=== PATIENT | female | born 1965 | race Two or more races ===

== ENCOUNTER 2020-07-14 10:42 | Outpatient (REF) | payer OTHER, SELFPAY | END 2020-07-14 10:43 | disposition home or self-care (01) | LOC: HO.LAB 10:42 | PROVIDERS: Visit Provider Internal Medicine | DX: Z20.828 Contact with and (suspected) exposure to other viral communicable diseases (principal) | CPT/HCPCS: C9803; U0003 ==

== ENCOUNTER 2020-09-16 09:50 | Outpatient (REF) | payer OTHER, SELFPAY | END 2020-09-16 09:51 | disposition home or self-care (01) | LOC: HO.LAB 09:50 | PROVIDERS: Visit Provider Internal Medicine | DX: Z20.822 Contact with and (suspected) exposure to COVID-19 (principal) | CPT/HCPCS: 36415; C9803; U0003 ==

== ENCOUNTER 2020-10-31 13:46 | Outpatient (REF) | payer OTHER, SELFPAY | END 2020-10-31 13:47 | disposition home or self-care (01) | LOC: HO.LNP 13:46 | PROVIDERS: PCP Internal Medicine; Visit Provider Obstetrics & Gynecology | DX: Z01.419 Encounter for gynecological examination (general) (routine) without abnormal findings (principal); R10.2 Pelvic and perineal pain; R31.29 Other microscopic hematuria; Z85.42 Personal history of malignant neoplasm of other parts of uterus; Z90.710 Acquired absence of both cervix and uterus; Z90.722 Acquired absence of ovaries, bilateral | CPT/HCPCS: 87086 ==

== ENCOUNTER 2020-11-11 14:49 | Outpatient (REF) | payer OTHER, SELFPAY ==
[2020-11-11 15:32] LABS: Blood Urea Nitrogen 21 mg/dL (9-16); Estimated Glomerular Filt Rate > 60
== END 2020-11-11 14:50 | disposition home or self-care (01) ==
LOC: HO.LAB 14:49
PROVIDERS: PCP Internal Medicine; Visit Provider Obstetrics & Gynecology
DX: R31.29 Other microscopic hematuria (principal)
CPT/HCPCS: 36415; 82565; 84520

== ENCOUNTER 2020-11-21 07:18 | Outpatient (REF) | payer OTHER, SELFPAY | END 2020-11-21 07:19 | disposition home or self-care (01) | LOC: HO.CT 07:18 | PROVIDERS: Visit Provider Obstetrics & Gynecology | DX: Z13.89 Encounter for screening for other disorder (principal) ==

== ENCOUNTER 2020-11-25 06:13 | Outpatient (REF) | payer OTHER, SELFPAY ==
--- NOTE | ~2020-11-25 | CT_ITS ---
EXAMINATION: CT ABDOMEN AND PELVIS WITH CONTRAST CLINICAL INFORMATION: Pelvic and perineal pain COMPARISON: None TECHNIQUE: Multidetector volumetric images were obtained from the superior aspect of the liver through the pubic symphysis following administration 85 mL of Omnipaque 350 intravenous contrast. Sagittal and coronal reformatted images were obtained on the technologist's workstation. Oral contrast: No This CT examination was performed using dose optimization techniques as appropriate, variously including the following: *Automated exposure control *Adjustment of mA and/or kV according to patient size (this includes techniques or standardized protocols for targeted exams where dose is matched to indication/reason for exam; i.e. extremities or head) *Use of iterative reconstruction technique DLP: 380 mGy-cm FINDINGS: LUNG BASES: The visualized lung bases are unremarkable. LIVER, GALLBLADDER, AND BILIARY TREE: The liver is normal in size, shape, and attenuation. No focal hepatic lesion or biliary ductal dilatation is present. The gallbladder is unremarkable with no evidence of radiopaque gallstones, gallbladder wall thickening, or obvious pericholecystic inflammatory changes. PANCREAS: There is an 8 mm cyst body of the pancreas on axial image 28/3. Otherwise the rest of the pancreas is homogeneous in density and normal size. SPLEEN: Unremarkable. ADRENAL GLANDS: Unremarkable. KIDNEYS AND URETERS: The kidneys are normal in size, shape, and attenuation. No hydronephrosis, hydroureter, or calculi seen. No perinephric stranding. BLADDER: Unremarkable. GASTROINTESTINAL TRACT: Scattered oral contrast seen throughout the colon and small bowel loops without distention. There is scattered stool in the colon and moderate impacted stool in the rectum consistent with constipation. Appendix is normal caliber. Cecum and the appendix lies within the right lower pelvis. No free fluid or free air seen. ABDOMINAL WALL: No significant hernia is appreciated. LYMPH NODES: Normal. VASCULAR: Unremarkable. PELVIC VISCERA: The uterus is not visualized likely surgically absent or atrophic. There is no free fluid or free air. OSSEOUS STRUCTURES: No lytic or sclerotic process seen. CT/CT abdomen pelvis w con IMPRESSION: 1. There is an 8 mm cyst body of the pancreas. Rest of the pancreas is unremarkable. Recommend follow-up pancreatic cyst in 6 months to one year. 2. Moderate constipation.
[2020-11-25] MEDS: Barium Sulfate Oral (Vanilla) 450 ML ORAL.SUSP 900 ML PO (09:05)
== END 2020-11-25 06:14 | disposition home or self-care (01) ==
LOC: HO.CT 06:13
PROVIDERS: Visit Provider Obstetrics & Gynecology
DX: R10.2 Pelvic and perineal pain (principal)
CPT/HCPCS: 74177; Q9967

== ENCOUNTER → 2020-11-30 08:13 | Outpatient (BNVA) | payer OTHER, SELFPAY | PROVIDERS: PCP Internal Medicine; Visit Provider Obstetrics & Gynecology | DX: R31.29 Other microscopic hematuria (principal); R10.2 Pelvic and perineal pain; K86.2 Cyst of pancreas | CPT/HCPCS: 81003 ==

== ENCOUNTER 2021-01-20 11:10 | Outpatient (REF) | payer OTHER, SELFPAY | END 2021-01-20 11:11 | disposition home or self-care (01) | LOC: HO.LAB 11:10 | PROVIDERS: Visit Provider Internal Medicine | DX: Z20.822 Contact with and (suspected) exposure to COVID-19 (principal) | CPT/HCPCS: C9803; U0003; U0005 ==

== ENCOUNTER 2021-04-14 15:35 | Outpatient (REF) | payer OTHER, SELFPAY ==
--- NOTE | ~2021-04-14 | MM_ITS ---
EXAMINATION: MM SCREENING DIGITAL BREAST TOMOSYNTHESIS, BILATERAL CLINICAL INFORMATION: Screening. Asymptomatic. The lifetime risk of breast cancer based on the Tyrer-Cuzick Model is 7%. COMPARISON: Mammography: 04/08/2020, 01/14/2019, 12/23/2017 TECHNIQUE: Digital breast tomosynthesis is performed in both the craniocaudal and mediolateral oblique views along with computer-aided detection (CAD). Synthesized 2D images are generated from the tomosynthesis. Additional left MLO view is provided. FINDINGS: There are scattered areas of fibroglandular density (ACR BI-RADS breast composition Category b). There are no significant masses, abnormal calcifications, or other abnormalities. The axilla are unremarkable. There is chronic bilateral nipple retraction similar to prior studies. MM/MM tomosynthesis screening BI IMPRESSION: No mammographic evidence of malignancy. ASSESSMENT: BI-RADS 2: Benign RECOMMENDATION: Routine annual mammography screening. This patient's information was entered into a reminder system with a target due date for their next mammogram.
== END 2021-04-14 15:36 | disposition home or self-care (01) ==
LOC: HO.MAMMO 15:35
PROVIDERS: PCP Internal Medicine; Visit Provider Internal Medicine
DX: Z12.31 Encounter for screening mammogram for malignant neoplasm of breast (principal)
CPT/HCPCS: 77063; 77067

== ENCOUNTER 2021-09-12 10:01 | Outpatient (REF) | payer OTHER, SELFPAY ==
[2021-09-12 13:39] LABS: Binax Internal Control QC Valid; Binax Now Covid-19 Ag Negative (Negative)
== END 2021-09-12 10:02 | disposition home or self-care (01) ==
LOC: HO.LAB 10:01
PROVIDERS: Visit Provider Internal Medicine
DX: Z20.822 Contact with and (suspected) exposure to COVID-19 (principal)
CPT/HCPCS: C9803

== ENCOUNTER → 2021-11-23 09:41 | Outpatient (BNVA) | payer OTHER, SELFPAY | PROVIDERS: Visit Provider Obstetrics & Gynecology | DX: R10.2 Pelvic and perineal pain (principal) ==

== ENCOUNTER 2022-06-13 19:17 | Emergency (ER) | payer OTHER, SELFPAY ==
[2022-06-13 20:55] VITALS: BP 122/74; PULSE 75; RESP 16; TEMP 36.6; O2SAT 98; BMI 27.4
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
== END 2022-06-13 22:16 | disposition home or self-care (01) ==
PROVIDERS: Emergency Provider Emergency Medicine
DX: M54.2 Cervicalgia (principal); M54.50 Low back pain, unspecified; R51.9 Headache, unspecified
CPT/HCPCS: 99282; 99283

== ENCOUNTER 2022-06-18 15:26 | Outpatient (REF) | payer OTHER, SELFPAY ==
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
== END 2022-06-18 15:27 | disposition home or self-care (01) ==
LOC: HO.XRAY 15:26
PROVIDERS: Visit Provider Chiropractor
DX: S33.5XXA Sprain of ligaments of lumbar spine, initial encounter (principal); S13.4XXA Sprain of ligaments of cervical spine, initial encounter; S63.91XA Sprain of unspecified part of right wrist and hand, initial encounter
CPT/HCPCS: 72040; 72100; 73130

== ENCOUNTER 2022-07-20 06:26 | Emergency (ER) | payer OTHER, SELFPAY ==
[2022-07-20 06:47] VITALS: BP 163/69; PULSE 67; RESP 153; TEMP 36.4; O2SAT 92; BMI 29.2
--- NOTE | 2022-07-20 08:01 | ED.EXTPRO ---
HPI - Extremity Problem General Chief complaint: Extremity Problem Stated complaint: Finger pain/No inj Time Seen by Provider: 07/20/22 07:45 Source: patient Mode of arrival: EMS Limitations: no limitations History of Present Illness HPI Narrative: 56-year-old female who presents emergency department for evaluation of redness, swelling and pain over the right ring finger. Patient states she noticed redness and pain over the tip of her right index finger approximately 1 week prior. She has been applying antibiotic with no improvement. 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 She denied systemic symptoms such as fever, chills and fatigue. She has been her usual state of health. She was concerned that the pain in her finger has increased. She describes the pain is a constant, burning sensation which is 7/10. Complaint: extremity pain (Ring finger) Onset (ago): week(s) (1) Pain Consistency: constant Location: right Severity scale (1-10): 7 Quality: burning Radiation: none Relieving factors: nothing Exacerbating factors: nothing Associated symptoms: denies other symptoms Context: other (Patient works in a retirement) Related Data Previous Rx's Medication Instructions Recorded cyclobenzaprine 10 mg tablet 10 mg PO TID PRN muscle spasm #10 06/13/22 tabs cephalexin 500 mg capsule 500 mg PO QID 5 days #20 caps 07/20/22 doxycycline hyclate 100 mg tablet 100 mg PO Q12H 5 days #10 tabs 07/20/22 Allergies Allergy/AdvReac Type Severity Reaction Status Date / Time morphine Allergy Unknown Unknown Verified 11/23/21 09:51 SEASONAL ALLERGIES Allergy Mild SNEEZING Uncoded 05/19/20 15:38 Review of Systems Review of Systems: Yes all other systems are reviewed and are negative PMFSH Past Medical History [facility] Narrative: Social history: Patient denies tobacco, alcohol and drug use. 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 [employer] Medical History Endometrial cancer GERD (gastroesophageal reflux disease) HTN (hypertension) Surgical History Hx of hysterectomy Hx of tubal ligation Family History Family History Maternal Grandfather Prostate cancer Social History Social History Alcohol intake: never Patient Tobacco Use Status: Never used Tobacco Advance Directives: No Advance Directives Information Provided: Yes Gender identity: Female Physical Exam Vital Signs: Vital Signs: Last Vital Signs Temp 97.6 F 07/20/22 06:47 Pulse 67 07/20/22 06:47 Resp 153 H 07/20/22 06:47 BP 163/69 H 07/20/22 06:47 Pulse Ox 92 07/20/22 06:47 O2 Del Method 07/20/22 06:47 BMI result Body Mass Index 29.2 Const: Other: Awake, alert, female patient, very pleasant cooperative, in no distress Extrem: Other: The patient's right middle finger revealed soft tissue swelling of the tip of the finger compared to the other extremity, the patient has an area of excoriated skin with erythema and increased work on the radial aspect distal phalanx. Patient's extremities neurovascular intact Course Course Course Narrative: 56-year-old female who presents emergency department for evaluation of pain, swelling, erythema and excoriation of the skin of the right distal phalanx of the ring finger. Patient's physical examination is consistent with cellulitis, I do not think that the patient has a felon or a paronychia at this time. The patient describes the fingers being very painful and with burning sensation and I suspect that she probably has a streptococcal infection however she works at a nursing facility is also at risk for bursa. Therefore the patient will be treated with Keflex 500 mg 4 times a day for 5 days and doxycycline 100 mg twice a day for 5 days. Patient was given printed and verbal instructions discharged home. Discharge Plan Discharge Clinical Impression: Cellulitis of finger of right hand Patient Disposition: Home, Self-Care Instructions: Cellulitis (ED) Additional Instructions: You have an infection of your finger. Take doxycycline 100 mg, 1 pill every 12 hours for 5 days Take Keflex (cephalexin) 500 mg pills, 1 pill 3 times a day for 5 days. Apply bacitracin or Neosporin to your finger twice a day. Soak your finger in warm water for 15 minutes 4 to 6 times a day for the next 2-3 days. This will increase the blood flow to your finger and help fight off the infection. Take ibuprofen 200 mg pills, 3 pills every 6 hours as needed for pain. Take Tylenol (acetaminophen) 500 mg pills, 2 pills every 4 to 6 hours as needed for pain. Follow-up with your doctor in 2 days. Please return to the emergency department if your symptoms get worse or if you develop any symptoms that are concerning to you. Please see work note Prescriptions: New cephalexin 500 mg capsule 500 mg PO QID 5 Days Qty: 20 0RF doxycycline hyclate 100 mg tablet 100 mg PO Q12H 5 Days Qty: 10 0RF No Action cyclobenzaprine 10 mg tablet 10 mg PO TID PRN (Reason: muscle spasm) Qty: 10 0RF Stand Alone Forms: Work/School Release
--- NOTE | 2022-07-20 08:52 | PC.NURSE ---
PT AWAKE, ALERT AND ORIENTED X 3. SKIN WARM AND DRY. RESP UNLABORED. DENIES N/V. NO ACUTE DISTRESS NOTED. SMALL RED AREA NOTED TO FINGER. +CMS PT EVALUATED BY PROVIDER. PLAN IS FOR DC HOME WITH ABX. PT AGREEABLE TO PLAN
== END 2022-07-20 08:57 | disposition home or self-care (01) ==
PROVIDERS: Emergency Provider Emergency Medicine Emergency Medical Services; PCP Internal Medicine
DX: L03.011 Cellulitis of right finger (principal)
CPT/HCPCS: 99282; 99283

== ENCOUNTER 2022-07-23 09:41 | Outpatient (REF) | payer OTHER, SELFPAY ==
--- NOTE | ~2022-07-23 | MM_ITS ---
EXAMINATION: MM SCREENING DIGITAL BREAST TOMOSYNTHESIS, BILATERAL CLINICAL INFORMATION: Screening. Asymptomatic. The lifetime risk of breast cancer based on the Tyrer-Cuzick Model is 5%. COMPARISON: Mammography: 04/14/2021, 04/08/2020, 01/14/2019 TECHNIQUE: Digital breast tomosynthesis is performed in both the craniocaudal and mediolateral oblique views along with computer-aided detection (CAD). Synthesized 2D images are generated from the tomosynthesis. FINDINGS: There are scattered areas of fibroglandular density (ACR BI-RADS breast composition Category b). There are no significant masses, abnormal calcifications, or other abnormalities. Parenchymal pattern is similar to prior studies. No developing density. The axilla are unremarkable. MM/MM tomosynthesis screening BI IMPRESSION: No mammographic evidence of malignancy. ASSESSMENT: BI-RADS 1: Negative RECOMMENDATION: Routine annual mammography screening. This patient's information was entered into a reminder system with a target due date for their next mammogram.
== END 2022-07-23 09:42 | disposition home or self-care (01) ==
LOC: HO.MAMMO 09:41
PROVIDERS: Visit Provider Obstetrics & Gynecology
DX: Z12.31 Encounter for screening mammogram for malignant neoplasm of breast (principal)
CPT/HCPCS: 77063; 77067

== ENCOUNTER 2022-11-01 12:56 | Outpatient (REF) | payer OTHER, SELFPAY ==
[2022-11-01 13:27] LABS: COVID-19 Test Positive (Negative); IDNOW Serial# BCCEAD1C
== END 2022-11-01 12:57 | disposition home or self-care (01) ==
LOC: HO.LAB 12:56
PROVIDERS: Visit Provider Internal Medicine
DX: Z20.822 Contact with and (suspected) exposure to COVID-19 (principal)
CPT/HCPCS: 87635; C9803

== ENCOUNTER 2022-11-09 12:37 | Outpatient (REF) | payer OTHER, SELFPAY ==
[2022-11-09 14:42] LABS: COVID-19 Test Negative (Negative); IDNOW Serial# 16C4AD1C
== END 2022-11-09 12:38 | disposition home or self-care (01) ==
LOC: HO.LAB 12:37
PROVIDERS: Visit Provider Internal Medicine
DX: Z20.822 Contact with and (suspected) exposure to COVID-19 (principal)
CPT/HCPCS: 87635; C9803

== ENCOUNTER 2023-04-23 09:18 | Outpatient (REF) | payer OTHER, SELFPAY | END 2023-04-23 09:19 | disposition home or self-care (01) | LOC: HO.LNP 09:18 | PROVIDERS: PCP Internal Medicine; Visit Provider Obstetrics & Gynecology | DX: Z01.419 Encounter for gynecological examination (general) (routine) without abnormal findings (principal); R10.2 Pelvic and perineal pain; R31.29 Other microscopic hematuria | CPT/HCPCS: 81002 ==

== ENCOUNTER 2023-04-23 09:18 | Outpatient (AMB) | payer OTHER, SELFPAY ==
[2023-04-23 09:22] VITALS: BP 134/64; BMI 26.8
--- NOTE | 2023-04-23 09:22 | MHC.OFFVIS ---
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 Complaining of her right pelvic pain over the last 4 months associated with bladder pressure and urinary frequency with no dysuria. Last Pap/HPV was negative in 08/17, the patient is status post hysterectomy for adenocarcinoma in Last Mammogram was BI-RADS 1 in 07/24 Last Colonoscopy was 8 years ago, the patient will be due in 2 years according to her [facility] Medical History Endometrial cancer GERD (gastroesophageal reflux disease) HTN (hypertension) Surgical History Hx of hysterectomy Hx of tubal ligation Family History Maternal Grandfather Prostate cancer Social History Alcohol intake: never Patient Tobacco Use Status: Never used Tobacco Gender identity: Female Female Reproductive History Menstrual Age of Menarche: 8 control method: permanent sterilization Total pregnancies: 2 Full term: 2 Number of Living Children: 2 Date of last pap smear: 08/22/16 (negative) Date of Mammogram: 07/23/22 Review of Systems Const All systems reviewed & are unremarkable except as noted in HPI and below Card Reports as per HPI and Reports no additional complaints Resp Reports as per HPI and Reports no additional complaints GI Reports as per HPI and Reports no additional complaints Reports as per HPI Physical Exam Vital Signs: Last Vital Signs BP 134/64 04/23/23 09:22 BMI result Body Mass Index 26.8 Const General: cooperative, healthy appearing and comfortable General: Yes bladder normal to palpation External Female Exam: No lesion Speculum Exam - Vagina: normal appearance of the vagina, normal vaginal discharge and not erythematous Speculum Exam - Cervix: Cervix absent Bimanual exam- vagina & uterus: bladder normal to palpation and uterus absent Bimanual Exam- Adnexa, other: Other (No masses detected) Assessment & Plan Assessment & Plan (1) Well woman exam: Comment: 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 Counseled the patient about the recommended dietary allowance of 1200 mg of Calcium & 600 IU of vitamin D. Mammogram ordered for 07/25 , the patient is up-to-date with her screening colonoscopy . The patient was instructed to perform monthly self-breast exams and schedule annual exam in a year; all questions answered and the patient verbalized understanding. (2) Pelvic pain: Comment: History of endometrial cancer status post TAHBSO in 2004 Code(s): R10.2 - Pelvic and perineal pain Plan: Will order CT scan of abdomen and pelvis with and without contrast. Instructions given to patient to schedule a 2 week postop appointment. All questions answered, the patient verbalized understanding. (3) Microscopic hematuria: Code(s): R31.29 - Other microscopic hematuria Plan: Urine dip showed microscopic hematuria, will send urine for culture, if positive will treat with antibiotics if negative will repeat urine dip in 2 weeks. Orders: Orders MM screening mammo BI 3 Months Z12.31 - Encounter for screening mammogram for malignant neoplasm of breast CT abdomen pelvis wo/w IV con Today R10.2 - Pelvic and perineal pain, R31.29 - Other microscopic hematuria Urine Culture Today R31.9 - Hematuria, unspecified Coding Level of Care Code Est Pt Prev Care 40-64y(45996) Diagnoses Well woman exam Z01.419 Pelvic pain R10.2 Microscopic hematuria R31.29
== END 2023-04-23 10:13 | disposition home or self-care (01) ==
LOC: HO.HWS 09:18
PROVIDERS: PCP Internal Medicine; Visit Provider Obstetrics & Gynecology
DX: Z01.419 Encounter for gynecological examination (general) (routine) without abnormal findings (principal); R10.2 Pelvic and perineal pain; R31.29 Other microscopic hematuria
CPT/HCPCS: 99396

== ENCOUNTER 2023-04-25 15:23 | Outpatient (REF) | payer OTHER, SELFPAY | END 2023-04-25 15:24 | disposition home or self-care (01) | LOC: HO.LAB 15:23 | PROVIDERS: Visit Provider Obstetrics & Gynecology | DX: R31.9 Hematuria, unspecified (principal) | CPT/HCPCS: 87086 ==

== ENCOUNTER 2023-05-27 10:28 | Outpatient (REF) | payer OTHER, SELFPAY ==
--- NOTE | ~2023-05-27 | CT_ITS ---
EXAMINATION: CT ABDOMEN AND PELVIS WITHOUT AND WITH CONTRAST CLINICAL INFORMATION: Pelvic and perineal pain. COMPARISON: CT abdomen and pelvis 11/25/2020. TECHNIQUE: Multidetector volumetric imaging was performed of the abdomen and pelvis before and after the IV administration of 85 mL of Omnipaque 350 intravenous contrast. Sagittal and coronal reformatted images were obtained on the technologist's workstation. This CT examination was performed using dose optimization techniques as appropriate, variously including the following: *Automated exposure control *Adjustment of mA and/or kV according to patient size (this includes techniques or standardized protocols for targeted exams where dose is matched to indication/reason for exam; i.e. extremities or head) *Use of iterative reconstruction technique DLP: 380 mGy-cm FINDINGS: LUNG BASES: The visualized lung bases are unremarkable. LIVER, GALLBLADDER, AND BILIARY TREE: The liver is normal in size, shape, and attenuation. No focal hepatic lesion or biliary ductal dilatation is present. The gallbladder is unremarkable with no evidence of radiopaque gallstones, gallbladder wall thickening, or obvious pericholecystic inflammatory changes. PANCREAS: There is a 9 x 7 mm cystic lesion in the neck of the pancreas, unchanged by my measurements compared to 11/25/2020. No pancreatic ductal dilatation. This is not clearly communicating with the pancreatic duct. SPLEEN: Normal size. ADRENAL GLANDS: No adrenal mass. KIDNEYS AND URETERS: Symmetric nephrograms. No hydroureteronephrosis. 2 mm nonobstructing calculus in the lower pole the right kidney. No focal renal mass. BLADDER: Unremarkable. GASTROINTESTINAL TRACT: The stomach is unremarkable. The small bowel is normal in caliber. No mesenteric mass or fluid. The appendix is normal. Large bowel is normal in caliber. No focal bowel wall thickening. No discrete bowel mass. ABDOMINAL WALL: No significant hernia is appreciated. LYMPH NODES: No lymphadenopathy. VASCULAR: Mild aortoiliac atherosclerosis. No aortic aneurysm. PELVIC VISCERA: Suspect hysterectomy and bilateral oophorectomy. No pelvic mass per OSSEOUS STRUCTURES: No suspicious osseous lesions. CT/CT abdomen pelvis wo/w IV con IMPRESSION: No explanation for pelvic and perineal pain. Stable 9 x 7 mm cystic lesion in the pancreas. This study documents 2 years of stability compared to 11/25/2020. Recommendation: Image yearly times a total of 5 years and then every 2 years x2 for a total imaging follow-up to 9 years. Therefore, follow-up pancreatic protocol CT abdomen without and with contrast is recommended in one year. Recommendation is based on the incidental pancreatic cyst white paper of the ACR incidental findings community 2017. Fleischner guidelines were followed.
[2023-05-27] MEDS: iohexoL 350 MG/ML 100 ML INFUS..BTL IV (10:58)
[2023-05-28 10:05] LABS: Creatinine POC 0.7 mg/dL (0.5-1.4); GFR POC > 60
== END 2023-05-27 10:29 | disposition home or self-care (01) ==
LOC: HO.CT 10:28
PROVIDERS: PCP Internal Medicine; Visit Provider Obstetrics & Gynecology
DX: R10.2 Pelvic and perineal pain (principal); R31.29 Other microscopic hematuria
CPT/HCPCS: 74178; 82565; Q9967

== ENCOUNTER 2023-06-19 10:02 | Emergency (ER) | payer OTHER, SELFPAY ==
--- NOTE | ~2023-06-19 | XR_ITS ---
STUDY: Right knee, right ankle INDICATION: Pain after fall COMPARISON: None FINDINGS: Right knee: No fracture, dislocation or joint effusion. Alignment and articulations maintained. Right ankle: No focal soft tissue swelling. No fracture or dislocation. Mortise is intact. Calcaneal spurring and Achilles calcification. XR/XR knee RT 3V IMPRESSION: No acute bony pathology right knee and right ankle. Calcaneal spurring. Question Achilles calcific tendinopathy.
--- NOTE | ~2023-06-19 | XR_ITS ---
STUDY: Right knee, right ankle INDICATION: Pain after fall COMPARISON: None FINDINGS: Right knee: No fracture, dislocation or joint effusion. Alignment and articulations maintained. Right ankle: No focal soft tissue swelling. No fracture or dislocation. Mortise is intact. Calcaneal spurring and Achilles calcification. XR/XR ankle RT min 3V IMPRESSION: No acute bony pathology right knee and right ankle. Calcaneal spurring. Question Achilles calcific tendinopathy.
[2023-06-19 10:05] VITALS: BP 155/70; PULSE 79; RESP 19; TEMP 36; O2SAT 98; BMI 27.5
--- NOTE | 2023-06-19 10:13 | ED.GENADULT ---
HPI - General Adult General Chief complaint: Extremity Injury, Lower Stated complaint: 06/18 fall/ leg injury Time Seen by Provider: 06/19/23 10:13 Source: patient and translator and interpreter Mode of arrival: ambulatory Limitations: language barrier History of Present Illness HPI narrative: Patient is a 57 year old assigned female at with no reported medical history presenting to the emergency department today with right knee and ankle pain. Patient states that she had a slip and fall yesterday at work and now has right knee and ankle pain. Patient denies any head strike or loss of consciousness. Patient denies any dizziness, lightheadedness, abdominal pain, nausea, vomiting, fever, chills, blurry vision, double vision, loss of vision, chest pain, difficulty breathing, shortness of breath, back pain, night sweats, pain with urination, increased urinary frequency, increased urinary urgency, blood in her urine or stool, syncope or a near syncopal episode, bowel incontinence, bladder incontinence, bowel retention, bladder retention, or any other complaints at this time. Onset (ago): day(s) Location: right and lower extremity Severity: mild Severity scale (1-10): 3 Quality: aching and dull Pain Consistency: constant Relieving factors: none Exacerbating factors: none Associated symptoms: denies other symptoms Treatments prior to arrival: none Related Data Home Medications Medication Instructions Recorded Confirmed amitriptyline 10 mg tablet 10 mg PO BEDTIME 04/23/23 omeprazole 40 mg capsule,delayed 40 mg PO DAILY 04/23/23 release Previous Rx's Medication Instructions Recorded cyclobenzaprine 10 mg tablet 10 mg PO TID PRN muscle spasm #10 06/13/22 tabs cephalexin 500 mg capsule 500 mg PO QID 5 days #20 caps 07/20/22 doxycycline hyclate 100 mg tablet 100 mg PO Q12H 5 days #10 tabs 07/20/22 Allergies Allergy/AdvReac Type Severity Reaction Status Date / Time morphine Allergy Unknown Unknown Verified 04/23/23 09:27 SEASONAL ALLERGIES Allergy Mild SNEEZING Uncoded 04/23/23 09:27 Review of Systems Constitutional: Constitutional: Reports no additional constitutional complaints, Denies chills, Denies fever(s) and Denies night sweats Eyes: Eyes: Reports no additional eye complaints, Denies blurry vision, Denies change in vision, Denies diplopia, Denies eye discharge, Denies loss of vision and Denies eye pain ENT: Denies dizziness Cardiovascular: Cardiovascular: Reports no additional cardiovascular complaints, Denies chest pain, Denies lightheadedness, Denies Loss of Consciousness and Denies dyspnea Respiratory: Respiratory: Reports no additional respiratory complaints and Denies dyspnea Gastrointestinal: Gastrointestinal: Reports no additional gastrointestinal complaints, Denies abdominal pain, Denies melena, Denies hematochezia, Denies change in bowel habits and Denies change in stool character Genitourinary: Genitourinary: Denies hematuria, Denies urinary frequency, Denies dysuria, Denies urinary incontinence, Denies urinary hesitancy and Denies urinary urgency Musculoskeletal: Musculoskeletal: Reports no additional musculoskeletal complaints, Denies numbness and Denies tingling Comments: right knee pain Neurologic: Denies dizziness, Denies loss of vision, Denies numbness and Denies tingling Psychiatric: Psychiatric: Reports no additional psychiatric complaints Endocrine: Endocrine: Reports no additional endocrine complaints Hematologic/Lymphatic: Hematologic/Lymphatic: Reports no additional hematologic/lymphatic complaints Allergic/Immunologic: Allergic/Immunologic: Reports no additional allergic/immunologic complaints PMFSH Past Medical History Attestation statement: The following information was validated with the patient. Source: old records reviewed and nursing notes reviewed Medical History Endometrial cancer HTN (hypertension) GERD (gastroesophageal reflux disease) Surgical History Hx of tubal ligation Hx of hysterectomy Family History Family History Maternal Grandfather Prostate cancer Social History Social History Alcohol intake: never Patient Tobacco Use Status: Never used Tobacco Smoked in Last 30 Days: No Use of substances other than those prescribed or required for medical reasons: No Advance Directives: No Advance Directives Information Provided: Yes Gender identity: Female Physical Exam ED Vital Signs: Vital Signs - 24 hr 06/19/23 10:05 Temperature 96.8 F Pulse Rate 79 Respiratory Rate 19 Blood Pressure 155/70 H Pulse Oximetry 98 Oxygen Delivery Method Room Air BMI result Body Mass Index 27.5 Const General: cooperative, no acute distress, alert and awake Nutritional Appearance: well nourished Orientation/consciousness: patient oriented x3 Limitations: no limitations HENMT Head: Yes normal to inspection and Yes atraumatic Ears: hearing grossly normal bilaterally and external ears normal General nose exam: Normal external nose present, no nasal discharge noted and no epistaxis Face and sinus: Yes normal facial exam, No abrasion and No laceration Mouth: Normal oral and palatal mucosa present, no drooling and no muffled voice Eyes General: appearance normal, both eyes and all related structures Periorbital: periorbital findings normal Eyelids: Yes eyelids normal Conjunctivae: conjunctivae normal Pupils: Equal, round and reactive pupils present EOM: EOMs intact bilaterally Neck Neck: Yes normal visual inspection, Yes full ROM and Yes no lymphadenopathy Chest Chest palpation & inspection: normal inspection of the chest Resp Effort & Inspection: normal respiratory effort and able to speak in complete sentences GI Inspection: Yes normal to inspection Neuro General: patient oriented x3 and moves all extremities Cranial nerves: Yes Equal, round and reactive pupils present Cognition (Neuro): normal cognition Motor exam (neuro): 5/5 motor strength present throughout Sensory Exam: Normal double simultaneous stimulation for sensation Coordination: [id number] test normal Extrem General: Yes normal to inspection, Yes full ROM and Yes capillary refill normal Psych Appearance: grossly normal Mental Status: mental status grossly normal Affect: normal affect Attitude: cooperative Thought process: Normal thought process present Thought content: Normal thought content present Insight: Good insight present (Psych) Medications Administered Discontinued Medications Generic Name Dose Route Start Last Admin Trade Name Freq PRN Reason Stop Dose Admin Ketorolac Tromethamine 15 mg 06/19/23 10:17 06/19/23 10:43 Ketorolac Tromethamine 15 Mg/Ml Vial IM 06/19/23 10:18 15 mg ONCE ONE Administration Procedures Orthopedic Splinting/Casting Injury #1: Side: right Lower Extremity Injury Location: knee Lower Extremity Immobilizer: knee immobilizer Other Orthopedic Equipment: crutches Medical Decision Making Medical Decision Making MDM Narrative: Patient is a 57 year old assigned female at with no reported medical history presenting to the emergency department today with right knee and right ankle pain. Patient's physical exam was unremarkable. Patient's right knee and ankle x-rays showed no acute process. I explained my physical exam findings as well as all test results to the patient. I answered all questions asked by the patient. Patient's right knee was placed in a knee immobilizer and the patient was given crutches with crutch instructions. Patient's PMS was intact prior to and after immobilizer placement. I stressed the importance of the patient taking her medication as prescribed. I stressed the importance of the patient following up with her primary care provider and an orthopedic provider. I stressed the importance of the patient returning to the emergency department immediately if her symptoms were to worsen or if she were to develop any dizziness, shortness of breath, difficulty breathing, chest pain, blurry vision, loss of vision, nausea, vomiting, abdominal pain, fever, chills, back pain, or any other complaints. Patient verbalized agreement and understanding with this treatment plan and discharge. Differential Diagnosis Differential Diagnoses: The differential diagnosis associated with the presentation includes Knee sprain Ankle sprain Knee pain Ankle pain Independent Interpretation I performed an independent interpretation of an: Plain X-Ray Interpretation: My interpretation is in agreement with the radiologist's impression of these imaging studies. STUDY: Right knee, right ankle INDICATION: Pain after fall COMPARISON: None FINDINGS: Right knee: No fracture, dislocation or joint effusion. Alignment and articulations maintained. Right ankle: No focal soft tissue swelling. No fracture or dislocation. Mortise is intact. Calcaneal spurring and Achilles calcification. XR/XR knee RT 3V IMPRESSION: No acute bony pathology right knee and right ankle. Calcaneal spurring. Question Achilles calcific tendinopathy. Dictated By: No Weiner MD Signed By: Electronically signed by No Weiner MD 06/19/23 [id number] Radiology Impression Discussion of test interpretation with radiology: I have reviewed the radiologist's reading. Discharge Plan Discharge Clinical Impression: Knee pain, Knee sprain Patient Disposition: Home, Self-Care Instructions: Crutch Instructions (ED), Knee Pain (ED) Additional Instructions: Follow up with your primary care provider and an orthopedic provider. Return to the emergency department immediately if your symptoms worsen or if you develop any dizziness, shortness of breath, difficulty breathing, chest pain, blurry vision, loss of vision, nausea, vomiting, abdominal pain, fever, chills, back pain, or any other complaints. Vikas un seguimiento con grimm proveedor de atenci?n primaria y un proveedor ortop?dico. Regrese al departamento de emergencias inmediatamente si kashmir s?ntomas empeoran o si presenta mareos, dificultad para respirar, dificultad para respirar, dolor en el pecho, visi?n borrosa, p?rdida de la visi?n, n?useas, v?mitos, dolor abdominal, fiebre, escalofr?os, dolor de espalda o cualquier otras quejas. Prescriptions: No Action cephalexin 500 mg capsule 500 mg PO QID 5 Days Qty: 20 0RF doxycycline hyclate 100 mg tablet 100 mg PO Q12H 5 Days Qty: 10 0RF cyclobenzaprine 10 mg tablet 10 mg PO TID PRN (Reason: muscle spasm) Qty: 10 0RF omeprazole 40 mg capsule,delayed release(DR/EC) 40 mg PO DAILY amitriptyline 10 mg tablet 10 mg PO BEDTIME Referrals: [facility] [place] [facility] [place] [facility] [Provider Group] (Call to establish and follow up with an orthopedic provider. Llame para establecer y realizar un seguimiento con un proveedor ortop?dico.) Dolores Simeon MD [Primary Care Provider] - Stand Alone Forms: Work/School Release Interventions: ED Discharge Assessment Last Done: 06/19/23 11:19 Discharge Date/Time: 06/19/23 11:23 Print Language: Maldivian
[2023-06-19] MEDS: Ketorolac Tromethamine 15 MG/ML VIAL IM (10:43)
== END 2023-06-19 11:23 | disposition home or self-care (01) ==
PROVIDERS: Emergency Provider Emergency Medicine Emergency Medical Services; PCP Internal Medicine
DX: S83.91XA Sprain of unspecified site of right knee, initial encounter (principal); M25.571 Pain in right ankle and joints of right foot; W01.0XXA Fall on same level from slipping, tripping and stumbling without subsequent striking against object, initial encounter; Y93.9 Activity, unspecified; Y92.9 Unspecified place or not applicable; Y99.0 Civilian activity done for income or pay; Z79.899 Other long term (current) drug therapy
CPT/HCPCS: 73562; 73610; 96372; 99284; J1885

== ENCOUNTER 2023-07-04 10:26 | Outpatient (AMB) | payer OTHER, SELFPAY ==
--- NOTE | 2023-07-04 10:27 | A.OFFVIS_ITS ---
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 She reports she was getting linens for changing beds at work when she didn't see the water on the floor and she slipped. The pain is all around her knee. She states that her right knee feels unstable. She has been wearing a knee immobilizer which she finds quite cumbersome. She continues to work light duty at work. She denies any knee pain prior to this injury. Most of the pain is along the medial and anterior aspects of her knee. 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 Allergies morphine Allergy (Unknown, Verified 07/04/23 10:27) Unknown SEASONAL ALLERGIES Allergy (Mild, Uncoded 07/04/23 10:27) SNEEZING Medication List - Last Reconciled 07/04/23 by Ashley Baldwin RN amitriptyline 10 mg PO BEDTIME cephalexin 500 mg PO QID 5 days cyclobenzaprine 10 mg PO TID PRN doxycycline hyclate 100 mg PO Q12H 5 days omeprazole 40 mg PO DAILY PFSH Medical History Endometrial cancer HTN (hypertension) GERD (gastroesophageal reflux disease) Surgical History Hx of tubal ligation Hx of hysterectomy Family History Maternal Grandfather Prostate cancer Social History Alcohol intake: never Patient Tobacco Use Status: Never used Tobacco Gender identity: Female Female Reproductive History Menstrual Age of Menarche: 8 Physical Exam Const Other: Well-nourished well-developed very friendly female awake alert and oriented x3 in no acute distress Extrem Other: Bilateral lower extremity examination shows good capillary refill, no skin lesions noted, normal sensation light touch Right knee examination shows a minimal effusion, tenderness along her medial joint line, positive Soren's test, no instability Results Reviewed Results Reviewed: X-rays of the patient's right knee show minimal joint space narrowing, no acute bony abnormalities Assessment & Plan Assessment & Plan (1) Tear of medial meniscus of right knee: Code(s): S83.241A - Other tear of medial meniscus, current injury, right knee, initial encounter Plan: Ms. Wellington presents with right knee pain and mechanical symptoms most likely due to a tear of her medial meniscus. Thus, I will send the patient for an MRI of her right knee for further evaluation. I will see her back once the MRI is completed to discuss the findings and treatment options. She will continue with light duty at work for now. The patient was also fitted for a knee brace because of her symptoms of instability. I do find that the knee brace is a medical necessity to help prevent future falls. Feel free to call me at any time should questions regarding her orthopedic management arise. I spent 20 minutes in reviewing the patient's records and imaging studies, seeing the patient and documenting in the medical record. Orders: Orders MR knee RT wo con Today S83.241A - Other tear of medial meniscus, current injury, right knee, initial encounter Coding Level of Care Code New Pt Level 2 (82207) Diagnoses Tear of medial meniscus of right knee S83.241A
== END 2023-07-04 11:21 | disposition home or self-care (01) ==
PROVIDERS: PCP Internal Medicine; Visit Provider Orthopaedic Surgery
DX: S83.241A Other tear of medial meniscus, current injury, right knee, initial encounter (principal)
CPT/HCPCS: 99202

== ENCOUNTER → 2023-07-04 10:26 | Outpatient (BNVA) | payer OTHER, SELFPAY | PROVIDERS: PCP Internal Medicine; Visit Provider Orthopaedic Surgery | DX: S83.241A Other tear of medial meniscus, current injury, right knee, initial encounter (principal); W01.0XXA Fall on same level from slipping, tripping and stumbling without subsequent striking against object, initial encounter; Y93.E9 Activity, other interior property and clothing maintenance; Y92.89 Other specified places as the place of occurrence of the external cause; Y99.0 Civilian activity done for income or pay | CPT/HCPCS: 99202 ==

== ENCOUNTER 2023-07-23 15:41 | Outpatient (AMB) | payer OTHER, SELFPAY ==
--- NOTE | 2023-07-23 15:58 | MHC.OFFVIS ---
Intake Vital Signs 07/23/23 16:00 Height 5 ft 4 in Weight 158 lb 11.725 oz BMI 27.2 BP 120/72 Intake Visit Reasons: CT follow up District Ranger Required: Yes District Ranger Language: Business Process Analyst Name: Radha HEMPHILL Information Interpreted: non-clinical & clinical Accompanied by: Self / Same As Patient Allergies morphine Allergy (Unknown, Verified 07/23/23 16:01) Unknown SEASONAL ALLERGIES Allergy (Mild, Uncoded 07/23/23 16:01) SNEEZING Post menopausal: Yes HPI HPI Comments History of Present Illness Details Presenting for CT follow-up: CT scan showed the following: No explanation for pelvic and perineal pain. Stable 9 x 7 mm cystic lesion in the pancreas. This study documents 2 years of stability compared to 11/25/2020. Recommendation: Image yearly times a total of 5 years and then every 2 years x2 for a total imaging follow-up to 9 years. Therefore, follow-up pancreatic protocol CT abdomen without and with contrast is recommended in one year. Recommendation is based on the incidental pancreatic cyst white paper of the ACR incidental findings community 2017. Fleischner guidelines were followed. [facility] Medical History Endometrial cancer HTN (hypertension) GERD (gastroesophageal reflux disease) Surgical History Hx of tubal ligation Hx of hysterectomy Family History Maternal Grandfather Prostate cancer Alcohol intake: never Patient Tobacco Use Status: Never used Tobacco Gender identity: Female Female Reproductive History Menstrual Age of Menarche: 8 Review of Systems Const All systems reviewed & are unremarkable except as noted in HPI and below Reports as per HPI and Reports no additional complaints GI Reports no additional complaints Reports no additional complaints Physical Exam Vital Signs: Last Vital Signs BP 120/72 07/23/23 16:00 BMI result Body Mass Index 27.2 Assessment & Plan Assessment & Plan (1) Pancreatic cyst: Code(s): K86.2 - Cyst of pancreas Plan: Discussed with the patient the finding on CT scan showing a pancreatic cyst , recommended to patient to control her PCP for further management. All questions answered, the patient verbalized understanding and given a copy of her CT scan report peer (2) Pelvic pain: Comment: History of endometrial cancer status post TAHBSO in 2004 Code(s): R10.2 - Pelvic and perineal pain Plan: Also discussed with the patient the results of the CT scan showing no pelvic masses, recommended to the patient to contact her PCP for further management and if her workup is negative and the pain persists to contact back will refer to manager image onc care history of endometrial cancer in . All questions answered, the patient verbalized understanding Coding Level of Care Code Est Pt Level 3 (00180) Diagnoses Pancreatic cyst K86.2 Pelvic pain R10.2
[2023-07-23 16:00] VITALS: BP 120/72; BMI 27.2
== END 2023-07-23 16:22 | disposition home or self-care (01) ==
LOC: HO.HWS 15:41
PROVIDERS: PCP Internal Medicine; Visit Provider Obstetrics & Gynecology
DX: K86.2 Cyst of pancreas (principal); R10.2 Pelvic and perineal pain
CPT/HCPCS: 99213

== ENCOUNTER → 2023-07-23 15:41 | Outpatient (BNVA) | payer OTHER, SELFPAY | PROVIDERS: PCP Internal Medicine; Visit Provider Obstetrics & Gynecology ==

== ENCOUNTER 2023-07-24 07:41 | Outpatient (AMB) | payer OTHER, SELFPAY ==
[2023-07-24 07:42] VITALS: BMI 27.1
--- NOTE | 2023-07-24 07:42 | A.OFFVIS_ITS ---
Intake Vital Signs 07/24/23 07:42 Height 5 ft 4 in Weight 158 lb BMI 27.1 Intake Visit Reasons: OV - Right knee MRI review Intake Note: Gissell is a 57 year old female who presents today for a MRI review of her right knee. The patient states that her knee is feeling ?better? when compared to her last visit. She denies any locking or giving way. She has been doing light duty at work. She takes Tylenol as needed for discomfort. She does not take the Tylenol on a daily basis. She feels like she can return to full duty at work. Allergies morphine Allergy (Unknown, Verified 07/24/23 07:44) Unknown SEASONAL ALLERGIES Allergy (Mild, Uncoded 07/23/23 16:01) SNEEZING Medication List - Last Reconciled 07/24/23 by Gen Andino MD amitriptyline 10 mg PO BEDTIME cephalexin 500 mg PO QID 5 days cyclobenzaprine 10 mg PO TID PRN doxycycline hyclate 100 mg PO Q12H 5 days omeprazole 40 mg PO DAILY PFSH Medical History Endometrial cancer HTN (hypertension) GERD (gastroesophageal reflux disease) Surgical History Hx of tubal ligation Hx of hysterectomy Family History Maternal Grandfather Prostate cancer Alcohol intake: never Patient Tobacco Use Status: Never used Tobacco Gender identity: Female Female Reproductive History Menstrual Age of Menarche: 8 Physical Exam Vital Signs: BMI result Body Mass Index 27.1 Const Other: Well-nourished well-developed very friendly female awake alert and oriented x3 in no acute distress Extrem Other: Bilateral lower extremity examination shows good capillary refill, no skin lesions noted, normal sensation light touch Right knee examination shows minimal crepitus with range of motion, no tenderness along her medial or lateral joint lines, Results Reviewed Results Reviewed: MRI report of the patient's right knee shows no evidence of meniscal or cruciate ligament tear, edema deep to the iliotibial band, edema in the superior, lateral aspect of Hoffa's fat pad Assessment & Plan Assessment & Plan (1) Right knee sprain: Code(s): S83.91XA - Sprain of unspecified site of right knee, initial encounter Plan Ms. Wellington presents with improving right knee discomfort due to a knee sprain. T here are no acute abnormalities found on her MRI which would require surgery. She can return to regular duty at work. She will follow up with me on an as- needed basis should any questions or concerns arise. Coding Level of Care Code Est Pt Level 2 (54063) Diagnoses Right knee sprain S83.91XA
== END 2023-07-24 08:00 | disposition home or self-care (01) ==
PROVIDERS: PCP Internal Medicine; Visit Provider Orthopaedic Surgery
DX: S83.91XA Sprain of unspecified site of right knee, initial encounter (principal)
CPT/HCPCS: 99212

== ENCOUNTER → 2023-07-24 07:41 | Outpatient (BNVA) | payer OTHER, SELFPAY | PROVIDERS: PCP Internal Medicine; Visit Provider Orthopaedic Surgery | DX: S83.91XA Sprain of unspecified site of right knee, initial encounter (principal) | CPT/HCPCS: 99212 ==

== ENCOUNTER 2023-07-29 09:02 | Outpatient (REF) | payer OTHER, SELFPAY | END 2023-07-29 09:03 | disposition home or self-care (01) | LOC: HO.MAMMO 09:02 | PROVIDERS: PCP Internal Medicine; Referring Provider Obstetrics & Gynecology; Visit Provider Internal Medicine | DX: Z12.31 Encounter for screening mammogram for malignant neoplasm of breast (principal) | CPT/HCPCS: 77063; 77067 ==

== ENCOUNTER → 2023-07-29 09:30 | Outpatient (BNV) | payer OTHER, SELFPAY | PROVIDERS: PCP Internal Medicine; Referring Provider Obstetrics & Gynecology; Visit Provider Radiology Diagnostic Radiology | DX: Z12.31 Encounter for screening mammogram for malignant neoplasm of breast (principal) | CPT/HCPCS: 77063; 77067 ==

== ENCOUNTER 2024-08-03 09:14 | Outpatient (REF) | payer BC, SELFPAY ==
--- NOTE | ~2024-08-03 | MM_ITS ---
EXAMINATION: MM SCREENING DIGITAL BREAST TOMOSYNTHESIS, BILATERAL CLINICAL INFORMATION: Screening. Asymptomatic. COMPARISON: Mammography: Comparison is made with available priors TECHNIQUE: Digital breast mammography with tomosynthesis is performed in both the craniocaudal and mediolateral oblique views along with computer-aided detection (CAD). FINDINGS: There are scattered areas of fibroglandular density (ACR BI-RADS breast composition Category b). There are no significant masses, abnormal calcifications, or other abnormalities. MM/MM tomosynthesis screening BI IMPRESSION: No mammographic evidence of malignancy. ASSESSMENT: BI-RADS BI-RADS 1 - Negative RECOMMENDATION: Routine annual mammography screening. 1 year F/U This examination should not preclude the clinical evaluation of a suspicious palpable abnormality. This patient's information was entered into a reminder system with a target due date for their next mammogram. Electronically signed by: Nicole Nunez DO 08/07/2024 11:10 AM [facility]
== END 2024-08-03 09:15 | disposition home or self-care (01) ==
LOC: HO.MAMMO 09:14
PROVIDERS: Visit Provider Internal Medicine
DX: Z12.31 Encounter for screening mammogram for malignant neoplasm of breast (principal)
CPT/HCPCS: 77063; 77067

== ENCOUNTER → 2024-08-03 09:30 | Outpatient (BNV) | payer SELFPAY | PROVIDERS: Visit Provider Internal Medicine | DX: Z12.31 Encounter for screening mammogram for malignant neoplasm of breast (principal) | CPT/HCPCS: 77063; 77067 ==